=== PATIENT | male | born 1990 | race Two or more races ===

== ENCOUNTER 2018-01-13 19:55 | Emergency (ER) | payer MEDICAID, OTHER ==
[~2018-01-13] VITALS: Ht 154.9 cm; Wt 81.6 kg
[2018-01-13 19:55] VITALS: BP 115/62
--- NOTE | 2018-01-13 20:04 | NUR ---
Patient to bed 6. RN evaluating patient at bedside.
--- NOTE | 2018-01-13 20:08 | NUR ---
PT CAME IN TO ER WITH C/O SMALL LACERATION ON LEFT BOTTOM OF FOOT. PT STATED THAT IT HAS BEEN BLEEDING FOR 15 MINUTES NON STOP. NO APPEARANT REDDNESS AND OR SIGN OF EDEMA. NO PAIN TO TOUCH JUST BURNING SENSATION. PT STATED THAT HE GOT OUT OF THE SHOWER AND STEPPED ON GLASS THAT HE FORGOT TO BRONZE CHASER. PT DENIES ANY ALLERGIES AND NOT CURRENT MEDICATION. DENIES N/V/D; SKIN IS PINK/WARM/DRY; AAOX4 WITH EVEN AND STEADY GAIT; LUNGS CLEAR BL; HR EVEN AND REGULAR; PT DENIES ANY FEVER, CP, SOB, OR COUGH AT THIS TIME; PATIENT STATES PAIN OF 5/10 AT THIS TIME; VSS; PATIENT POSITIONED FOR COMFORT; HOB ELEVATED; BEDRAILS UP X2; BED DOWN. ER MD MADE AWARE OF PT STATUS.
[2018-01-13] MEDS ORDERED: LIDOCAINE 2% 1000 MG/50 ML VIAL INJ ONE (21:00)
--- NOTE | 2018-01-13 21:46 | NUR ---
vibration technician at bedside.
--- NOTE | 2018-01-13 22:15 | NUR ---
Dr. Richter evaluating patient at bedside.
[2018-01-13 23:30] VITALS: BP 118/67
--- NOTE | 2018-01-13 23:30 | NUR ---
Patient discharged with v/s stable. Written and verbal after care instructions given and explained. Patient alert, oriented and verbalized understanding of instructions. Ambulatory with steady gait. All questions addressed prior to discharge. ID band removed. Patient advised to follow up with PMD. Rx of MOTRIN given. Patient educated on indication of medication including possible reaction and side effects. Opportunity to ask questions provided and answered.PT was given crutches for ambulation. pt tolerated it well.
== END 2018-01-13 23:30 | disposition home or self-care (01) ==
LOC: MED 19:55
DX: S91.312A Laceration without foreign body, left foot, initial encounter (principal); W25.XXXA Contact with sharp glass, initial encounter; Y93.89 Activity, other specified; Y92.89 Other specified places as the place of occurrence of the external cause; Y99.8 Other external cause status
CPT/HCPCS: 12001; 73630; 99284; J2001; Q0092

== ENCOUNTER 2019-08-31 17:47 | Emergency (ER) | payer SELFPAY ==
[~2019-08-31] VITALS: Ht 177.8 cm; Wt 79.4 kg
[2019-08-31 17:49] VITALS: BP 139/77
--- NOTE | 2019-08-31 17:57 | NUR ---
PT ASSESSED BY DR OWEN.
--- NOTE | 2019-08-31 18:03 | NUR ---
PATIENT BIB [employer] DEPT. PATIENT EXAMINED BY DR. OWEN. PATIENT MEDICALLY CLEARED AND RELEASED IN CUSTODY IN STABLE CONDITION. ORIGINAL PRE-BOOK FORM GIVEN TO OFFICER JEMIMA.
== END 2019-08-31 18:03 ==
LOC: MED 17:47
DX: R10.9 Unspecified abdominal pain (principal); R11.2 Nausea with vomiting, unspecified; R19.7 Diarrhea, unspecified; F41.9 Anxiety disorder, unspecified; Z02.89 Encounter for other administrative examinations
CPT/HCPCS: 99283

== ENCOUNTER 2023-02-26 11:17 | Emergency (ER) | payer MEDICAID ==
[~2023-02-26] VITALS: Ht 180.3 cm; Wt 72.6 kg
[2023-02-26 11:31] VITALS: BP 137/78; PULSE 96; RESP 18; TEMP 97.2; O2SAT 98
[2023-02-26] MEDS ORDERED: LORazepam 1 MG TAB PO ONE (11:50)
[2023-02-26] MEDS ORDERED: HYDR-635 PO (11:53)
[2023-02-26] MEDS ORDERED: ONDA-188 PO (11:53)
[2023-02-26 12:18] VITALS: BP 125/72; PULSE 92; RESP 16; TEMP 98; O2SAT 98
== END 2023-02-26 12:19 | disposition home or self-care (01) ==
LOC: MED 11:17
DX: F41.9 Anxiety disorder, unspecified (principal); Z79.899 Other long term (current) drug therapy
CPT/HCPCS: 99283